=== PATIENT | female | born 1970 | race Caucasian/White ===

== ENCOUNTER 2022-06-26 09:24 | Emergency (ER) | payer BC, SELFPAY ==
--- NOTE | 2022-06-26 09:15 | RT.EKG_ITS ---
APPROVED REPORT Exam: Resting ECG Reason for Exam: chest pain Patient Location: E HR:74 bpm ECG Measurements Heart Rate 74 AXIS KS 119 P 51 QRSd 95 QRS 33 QT 375 T 36 QTc 417 Conclusion Sinus rhythm...normal P axis, V-rate 60- 99
[2022-06-26 09:27] VITALS: BP 126/81; PULSE 82; RESP 16; TEMP 36.6; O2SAT 97
--- NOTE | 2022-06-26 09:31 | W.ED.GENAD ---
Discharge Plan Disposition Patient Disposition: Home Condition: Improving Discharge Details Clinical Impression: Syncope and collapse, Vaso-vagal reaction Primary Care Provider: Joann Sin ED Provider: Khoa Babcock Meds and New Rx's Prescriptions: Continued atorvastatin 80 mg Tablet 80 mg PO DAILY prednisone 20 mg Tablet 40 mg PO DAILY montelukast 4 mg Tablet,Chewable 10 mg PO DAILY mycophenolate mofetil [CellCept] 500 mg Tablet 1,500 mg PO BID metformin 1,000 mg Tablet 1,000 mg PO DAILY lisinopril 10 mg Tablet 10 mg PO DAILY albuterol 90 mcg/actuation Aerosol 90 mcg INHALATION PRN PRN hydroxychloroquine [Plaquenil] 200 mg Tablet 200 mg PO DAILY budesonide-formoterol [Symbicort] 80-4.5 mcg/actuation Hfa Aerosol Inhaler 2 puff INHALATION BID venlafaxine 225 mg Tablet Extended Release 24hr 225 mg PO QAM Discharge Instructions Instructions: Syncope (ED) Discharge Data Discharge Physician: Khoa Babcock Medical Decision Making Summary: I analyzed the data imaging and labs on this patient who came to the emergency department after she had a syncopal episode where she having an IV placed in her left antecubital fossa. Most like the patient had a vasovagal syncopal episode. Patient had a CT of the head chest x-ray EKG all within normal limits as interpreted by me and the radiologist. 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 She was given IV fluids and her course was uneventful and actually improved. At this time patient will be discharged home. Shared decision making: The patient understands and advised her that when she gets an IV they should stimulate the pain prior to inserting the IV so that we will prevent a vasovagal reaction from the vein. She will follow-up with her primary care physician Differential Diagnosis Differential Diagnosis: 1. Vasovagal syncope 2. Orthostatic syncope 3. Cardiac arrhythmia 4. SA Medical Records Medical records reviewed: Yes I reviewed the patient's medical records. Imaging Data Radiologic Study: Attestation: I personally reviewed and interpreted this imaging study as follows: Imaging: CT Scan My impression: Normal head CT as read by me and read by the radiologist Radiologist's impression: Launch?Image Patient Name: Agustina Page Unit #: [id number] Loc: ER ? Ordering Provider:? Khoa Babcock M.D. Status: REG ER ? Primary Care Provider: Joann Sin NP Date of Exam: 06/26/22 Sex: F ? : 1970 Age: 52 ? Exam(s) a CT:CT head wo Exam(s) CT HEAD WO EXAM: ? CT HEAD WO CLINICAL HISTORY: ? syncope. ? TECHNIQUE:? Imaging Protocol: Axial computed tomography images with coronal and sagittal reformatted images were created and reviewed COMPARISON:? No exams were available for comparison FINDINGS: Ventricles and Extra axial spaces: Normal in size and morphology for the patient's age. Hemorrhage: None. Cerebral parenchyma: No evidence of an acute territorial infarct.? Midline shift: None. Brainstem/Cerebellum: Normal. Calvarium: Normal. Visualized Paranasal sinuses/Mastoids: Clear. Soft Tissues: Unremarkable. IMPRESSION: 1. No acute intracranial process.? 2. Findings were discussed with Dr. Pollock at 10:46 a.m. on 06/26/2022. RADIATION DOSE DELIVERED:? 798.05mGy.cm Total DLP DATA REPOSITORY:? All CT scans at this facility are submitted to the National Radiology Data Registry (NRDR) Dose Index Registry (DIR) with the [employer] (ACR). RADIATION OPTIMIZATION:? All CT scans at this facility use at least one of these dose optimization techniques: automated exposure control; mA and/or kV adjustment per patient size (includes targeted exams where dose is matched to clinical indication); or iterative reconstruction. 2532-3031: Total DLP =? ? 0.00 mGy-cm Ordered By:? Khoa Babcock M.D. CC: ? Radiologic Study #2: Attestation: I personally reviewed and interpreted this imaging study as follows: Imaging: X-Ray My impression: Normal chest x-ray no abnormality Radiologist's impression: ? ED Visit Note Preview Review?and?Refine ? Ready for Discharge ? Typicals Recall ? Save Sign Principal Khoa Babcock MD Contributors Last Saved at 06/26/22 12:03 HPI ROS PFSH PAWSS Exam Course PROC MDM CC Time Sign Out Discharge Plan F2F POCUS Exam (ED) Medical Decision Making Add?Content ? Radiologic Studies ? HPI ? Review of Systems ? PFSH ? PAWSS ? Exam ? Course ? Procedures ? ? MDM Narrative ? ? Medical decision making narrative ? ? Differential Diagnosis ? Medical Records ? ? Medical records reviewed ? I reviewed the patient's medical records. ? Medical records narrative ? ? Imaging Data Add ? Radiologic Study ? Lab Data ? ? Lab results reviewed Yes <del>No</del> ? I reviewed the patient's lab results. ? Lab results narrative ? ? ? Labs ? ? ECG Data ? ? Attestation ? I personally reviewed and interpreted this ECG (s) as follows: ? Prior ECG tracings ? available for review not available for review ? Interpretation ? Please include at least 3 of the following 6 elements in your interpretation: Hensley? Rhythm? Rate? CO intervals? ST-T wave changes? Comparison to a prior ECG (if reviewed) ? Normal sinus rhythm heart rate 74 normal CO interval normal axis no acute ST- T change Core Measures ? ? AMI Core Measures Followed ? Yes No ? Measure exclusions ? not indicated contraindicated Critical Care Time ? Sign Out ? Discharge ? Restraint Face to Face ? POCUS Exam (ED) ? ? Agustina Page ED 52, F?1970 MRN#? [id number] REG ER,?Main ER??P1?-P1? 1.57m 64.41kg BMI: 26.0kg/m? [id number] Acc#? [id number] Resus Status Not Ordered No Hx Avail Allergies Sulfa (Sulfonamide Antibiotics) Other (See Comment) Problems No Data to Display Home Meds Confirmed MEDICATIONS (INSTRUCTIONS) LAST TAKEN Active albuterol 90 mcginhalationPRNPRN *Product no longer available atorvastatin 80 mgPODAILY budesonide-formoterol [Symbicort] 2 puffinhalationBID hydroxychloroquine [Plaquenil] 200 mgPODAILY lisinopril 10 mgPODAILY metformin [Glucophage] 1,000 mgPODAILY montelukast 10 mgPODAILY mycophenolate mofetil [CellCept] 1,500 mgPOBID prednisone 40 mgPODAILY venlafaxine 225 mgPOQAM Special Indicators No Data to Display Vitals - Initial & Most Recent INITIAL Today 09:27 CURRENT Today 09:46 BP 126/81 *126/81 Pulse 82 *82 Resp 16 16 Temp 36.6 C *36.6 C O2 Sat 97 *97 O2 Delivery *from earlier documentation Triage Note pt arrives via EMS from [facility], pt does not have cancer but was 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 pt has medical anxiety, took 0.25mg clonazapam this AM, fainted during IV placment. 300ml of NS given. PFSH MEDICAL HISTORY ONSET No Active Medical Hx to Display SURGICAL HISTORY ONSET No Active Surgical Hx to Display FAMILY HISTORY SOCIAL HISTORY Documents Most Recent Departmental Emergency Room Visit Notes Today EKG Interpretation Report Today Imaging Chest X-Ray Today Head CT Today Lab Results Last 24 Hrs Most Recent Hematology WBC (4.4-10.8) 14.05 10^3/uL H Today 10:04 RBC (3.93-5.22) 3.07 10^6/uL L Today 10:04 Hgb (11.2-15.7) 9.5 g/dL L Today 10:04 Hct (36.0-46.0) 30.7 % L Today 10:04 MCV (80-95) 100 fL H Today 10:04 MCH (27.0-33.0) 30.9 pg Today 10:04 MCHC (32.0-36.0) 30.9 % L Today 10:04 RDW (11.7-14.6) 16.7 % H Today 10:04 Plt Count (130-400) 237 10^3/uL Today 10:04 MPV (8.0-11.0) 8.9 fL Today 10:04 Immature Gran % 0.4 Today 10:04 Neutrophils % 86.1 Today 10:04 Lymphocytes % 9.0 Today 10:04 Monocytes % 4.1 Today 10:04 Eosinophils % 0.1 Today 10:04 Basophils % 0.3 Today 10:04 Nucleated RBC % (0.0-0.3) 0.0 % Today 10:04 Absolute Neutrophils (1.2-6.7) 12.10 10^3/uL H Today 10:04 Absolute Lymphocytes (1.2-3.4) 1.26 10^3/uL Today 10:04 Absolute Monocytes (0.1-0.8) 0.58 10^3/uL Today 10:04 Absolute Eosinophils (0.0-0.7) 0.01 10^3/uL Today 10:04 Absolute Basophils (0.0-0.2) 0.04 10^3/uL Today 10:04 Chemistry Sodium (136-145) 140 mmol/L Today 10:45 Potassium (3.5-5.1) 3.5 mmol/L Today 10:45 Chloride (98-107) 105 mmol/L Today 10:45 Carbon Dioxide (21.0-32.0) 27.1 mmol/L Today 10:45 Anion Gap (3-11) 7.9 mmol/L Today 10:45 BUN (7-18) 21 mg/dL H Today 10:45 Creatinine (0.55-1.02) 0.8 mg/dL Today 10:45 Est GFR (CKD-EPI 2020) (mL/min/1.73m2) 89.15? Today 10:45 Glucose (74-106) 158 mg/dL H Today 10:45 Calcium (8.5-10.1) 8.8 mg/dL Today 10:45 Magnesium (1.8-2.4) 1.9 mg/dL Today 10:45 Total Bilirubin (0.2-1.0) 0.4 mg/dL Today 10:45 AST (15-37) 11 U/L L Today 10:45 ALT (14-59) 22 U/L Today 10:45 Alkaline Phosphatase (46-116) 29 U/L L Today 10:45 Troponin I (<or=60) < 50 ng/L Today 10:45 Total Protein (6.4-8.2) 5.8 g/dL L Today 10:45 Albumin (3.4-5.0) 3.5 g/dL Today 10:45 PFSH-Nursing Medical History Other Medical History 1 Other Medical History 2 Other Medical History 3 Other Medical History 4 Other Medical History 5 Surgical History Other Surgical History 1 Other Surgical History 2 Other Surgical History 3 Family History Other Pertinent Family History Secondary Triage Note Objective Subjective Triage Data Stated Complaint BERNA Chief Complaint [id number] Condition Arrival Date/Time 06/26/22 09:24 Arrival Mode AMBULANCE BERNA Triaged At 06/26/22 09:27 ED Location Main ER Area/Station P1 P1 Lab Results Last Value Most Recent Hematology WBC (4.4-10.8) 14.05 10^3/uL H Today RBC (3.93-5.22) 3.07 10^6/uL L Today Hgb (11.2-15.7) 9.5 g/dL L Today Hct (36.0-46.0) 30.7 % L Today MCV (80-95) 100 fL H Today MCH (27.0-33.0) 30.9 pg Today MCHC (32.0-36.0) 30.9 % L Today RDW (11.7-14.6) 16.7 % H Today Plt Count (130-400) 237 10^3/uL Today MPV (8.0-11.0) 8.9 fL Today Immature Gran % 0.4 Today Neutrophils % 86.1 Today Lymphocytes % 9.0 Today Monocytes % 4.1 Today Eosinophils % 0.1 Today Basophils % 0.3 Today Nucleated RBC % (0.0-0.3) 0.0 % Today Absolute Neutrophils (1.2-6.7) 12.10 10^3/uL H Today Absolute Lymphocytes (1.2-3.4) 1.26 10^3/uL Today Absolute Monocytes (0.1-0.8) 0.58 10^3/uL Today Absolute Eosinophils (0.0-0.7) 0.01 10^3/uL Today Absolute Basophils (0.0-0.2) 0.04 10^3/uL Today Chemistry Sodium (136-145) 140 mmol/L Today Potassium (3.5-5.1) 3.5 mmol/L Today Chloride (98-107) 105 mmol/L Today Carbon Dioxide (21.0-32.0) 27.1 mmol/L Today Anion Gap (3-11) 7.9 mmol/L Today BUN (7-18) 21 mg/dL H Today Creatinine (0.55-1.02) 0.8 mg/dL Today Est GFR (CKD-EPI 2020) (mL/min/1.73m2) 89.15? Today Glucose (74-106) 158 mg/dL H Today Calcium (8.5-10.1) 8.8 mg/dL Today Magnesium (1.8-2.4) 1.9 mg/dL Today Total Bilirubin (0.2-1.0) 0.4 mg/dL Today AST (15-37) 11 U/L L Today ALT (14-59) 22 U/L Today Alkaline Phosphatase (46-116) 29 U/L L Today Troponin I (<or=60) < 50 ng/L Today Total Protein (6.4-8.2) 5.8 g/dL L Today Albumin (3.4-5.0) 3.5 g/dL Today Documents Agustina Page??52??F??1970 ? Allergy/Adv: Sulfa (Sulfonamide Antibiotics) (More??) Close Emergency Room Visit Notes (Draft) Khoa Babcock - 06/26/22 09:31 EKG Interpretation Report 06/26/22 09:15 Chest X-Ray (Signed) Jordan Duncan - 06/26/22 09:[address] (Signed) Jordan Duncan - 06/26/22 09:45 Launch?Image Patient Name: Agustina Page Unit #: [id number] Loc: ER ? Ordering Provider:? Khoa Babcock M.D. Status: REG ER ? Primary Care Provider: Joann Sin NP Date of Exam: 06/26/22 Sex: F ? Admission Date: 06/26/22? : 1970 ? Age: 52 ? Exam(s) XR CHEST 1V IN DI DEPT EXAM:? XR CHEST 1V IN DI DEPT CLINICAL HISTORY:? syncope TECHNIQUE:? 2D digital imaging was performed of the chest. One image was obtained.? An AP view was obtained. COMPARISON:? No exams were available for comparison FINDINGS: MEDIASTINUM: Normal.? HEART: Normal. PULMONARY VASCULATURE: Normal. LUNGS: Clear.? PLEURAL SPACE: No pleural effusion or pneumothorax. BONE:Within normal limits for the patient's age. There is a mild right convex curvature of the thoracic spine. OTHER FINDINGS:Normal.? IMPRESSION: No acute pulmonary findings. DATA REPOSITORY:? RADIATION DOSE DELIVERED:? Ordered By:? Khoa Babcock M.D. CC: ? ? ED Visit Note Preview Review?and?Refine ? Ready for Discharge ? Typicals Recall ? Save Sign Principal Khoa Babcock MD Contributors Last Saved at 06/26/22 12:03 HPI ROS PFSH PAWSS Exam Course PROC [facility] CC Time Sign Out Discharge Plan F2F POCUS Exam (ED) Medical Decision Making Add?Content ? Radiologic Studies ? HPI ? Review of Systems ? PFSH ? PAWSS ? Exam ? Course ? Procedures ? ? [facility] Narrative ? ? Medical decision making narrative ? ? Differential Diagnosis ? Medical Records ? ? Medical records reviewed ? I reviewed the patient's medical records. ? Medical records narrative ? ? Imaging Data Add ? Radiologic Study ? Lab Data ? ? Lab results reviewed Yes <del>No</del> ? I reviewed the patient's lab results. ? Lab results narrative ? ? ? Labs ? ? ECG Data ? ? Attestation ? I personally reviewed and interpreted this ECG (s) as follows: ? Prior ECG tracings ? available for review not available for review ? Interpretation ? Please include at least 3 of the following 6 elements in your interpretation: Hensley? Rhythm? Rate? CO intervals? ST-T wave changes? Comparison to a prior ECG (if reviewed) ? Normal sinus rhythm heart rate 74 normal CO interval normal axis no acute ST- T change Core Measures ? ? AMI Core Measures Followed ? Yes No ? Measure exclusions ? not indicated contraindicated Critical Care Time ? Sign Out ? Discharge ? Restraint Face to Face ? POCUS Exam (ED) ? ? Agustina Page ED 52, F?1970 MRN#? [id number] REG ER,?Main ER??P1?-P1? 1.57m 64.41kg BMI: 26.0kg/m? [id number] Acc#? [id number] Resus Status Not Ordered No Hx Avail Allergies Sulfa (Sulfonamide Antibiotics) Other (See Comment) Problems No Data to Display Home Meds Confirmed MEDICATIONS (INSTRUCTIONS) LAST TAKEN Active albuterol 90 mcginhalationPRNPRN *Product no longer available atorvastatin 80 mgPODAILY budesonide-formoterol [Symbicort] 2 puffinhalationBID hydroxychloroquine [Plaquenil] 200 mgPODAILY lisinopril 10 mgPODAILY metformin [Glucophage] 1,000 mgPODAILY montelukast 10 mgPODAILY mycophenolate mofetil [CellCept] 1,500 mgPOBID prednisone 40 mgPODAILY venlafaxine 225 mgPOQAM Special Indicators No Data to Display Vitals - Initial & Most Recent INITIAL Today 09:27 CURRENT Today 09:46 BP 126/81 *126/81 Pulse 82 *82 Resp 16 16 Temp 36.6 C *36.6 C O2 Sat 97 *97 O2 Delivery *from earlier documentation Triage Note pt arrives via EMS from [facility], pt does not have cancer but was 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 pt has medical anxiety, took 0.25mg clonazapam this AM, fainted during IV placment. 300ml of NS given. PFSH MEDICAL HISTORY ONSET No Active Medical Hx to Display SURGICAL HISTORY ONSET No Active Surgical Hx to Display FAMILY HISTORY SOCIAL HISTORY Documents Most Recent Departmental Emergency Room Visit Notes Today EKG Interpretation Report Today Imaging Chest X-Ray Today Head CT Today Lab Results Last 24 Hrs Most Recent Hematology WBC (4.4-10.8) 14.05 10^3/uL H Today 10:04 RBC (3.93-5.22) 3.07 10^6/uL L Today 10:04 Hgb (11.2-15.7) 9.5 g/dL L Today 10:04 Hct (36.0-46.0) 30.7 % L Today 10:04 MCV (80-95) 100 fL H Today 10:04 MCH (27.0-33.0) 30.9 pg Today 10:04 MCHC (32.0-36.0) 30.9 % L Today 10:04 RDW (11.7-14.6) 16.7 % H Today 10:04 Plt Count (130-400) 237 10^3/uL Today 10:04 MPV (8.0-11.0) 8.9 fL Today 10:04 Immature Gran % 0.4 Today 10:04 Neutrophils % 86.1 Today 10:04 Lymphocytes % 9.0 Today 10:04 Monocytes % 4.1 Today 10:04 Eosinophils % 0.1 Today 10:04 Basophils % 0.3 Today 10:04 Nucleated RBC % (0.0-0.3) 0.0 % Today 10:04 Absolute Neutrophils (1.2-6.7) 12.10 10^3/uL H Today 10:04 Absolute Lymphocytes (1.2-3.4) 1.26 10^3/uL Today 10:04 Absolute Monocytes (0.1-0.8) 0.58 10^3/uL Today 10:04 Absolute Eosinophils (0.0-0.7) 0.01 10^3/uL Today 10:04 Absolute Basophils (0.0-0.2) 0.04 10^3/uL Today 10:04 Chemistry Sodium (136-145) 140 mmol/L Today 10:45 Potassium (3.5-5.1) 3.5 mmol/L Today 10:45 Chloride (98-107) 105 mmol/L Today 10:45 Carbon Dioxide (21.0-32.0) 27.1 mmol/L Today 10:45 Anion Gap (3-11) 7.9 mmol/L Today 10:45 BUN (7-18) 21 mg/dL H Today 10:45 Creatinine (0.55-1.02) 0.8 mg/dL Today 10:45 Est GFR (CKD-EPI 2020) (mL/min/1.73m2) 89.15? Today 10:45 Glucose (74-106) 158 mg/dL H Today 10:45 Calcium (8.5-10.1) 8.8 mg/dL Today 10:45 Magnesium (1.8-2.4) 1.9 mg/dL Today 10:45 Total Bilirubin (0.2-1.0) 0.4 mg/dL Today 10:45 AST (15-37) 11 U/L L Today 10:45 ALT (14-59) 22 U/L Today 10:45 Alkaline Phosphatase (46-116) 29 U/L L Today 10:45 Troponin I (<or=60) < 50 ng/L Today 10:45 Total Protein (6.4-8.2) 5.8 g/dL L Today 10:45 Albumin (3.4-5.0) 3.5 g/dL Today 10:45 PFS-Nursing Medical History Other Medical History 1 Other Medical History 2 Other Medical History 3 Other Medical History 4 Other Medical History 5 Surgical History Other Surgical History 1 Other Surgical History 2 Other Surgical History 3 Family History Other Pertinent Family History Secondary Triage Note Objective Subjective Triage Data Stated Complaint CALEX Chief Complaint [id number] Condition Arrival Date/Time 06/26/22 09:24 Arrival Mode AMBULANCE BERNA Triaged At 06/26/22 09:27 ED Location Main ER Area/Station P1 P1 Lab Results Last Value Most Recent Hematology WBC (4.4-10.8) 14.05 10^3/uL H Today RBC (3.93-5.22) 3.07 10^6/uL L Today Hgb (11.2-15.7) 9.5 g/dL L Today Hct (36.0-46.0) 30.7 % L Today MCV (80-95) 100 fL H Today MCH (27.0-33.0) 30.9 pg Today MCHC (32.0-36.0) 30.9 % L Today RDW (11.7-14.6) 16.7 % H Today Plt Count (130-400) 237 10^3/uL Today MPV (8.0-11.0) 8.9 fL Today Immature Gran % 0.4 Today Neutrophils % 86.1 Today Lymphocytes % 9.0 Today Monocytes % 4.1 Today Eosinophils % 0.1 Today Basophils % 0.3 Today Nucleated RBC % (0.0-0.3) 0.0 % Today Absolute Neutrophils (1.2-6.7) 12.10 10^3/uL H Today Absolute Lymphocytes (1.2-3.4) 1.26 10^3/uL Today Absolute Monocytes (0.1-0.8) 0.58 10^3/uL Today Absolute Eosinophils (0.0-0.7) 0.01 10^3/uL Today Absolute Basophils (0.0-0.2) 0.04 10^3/uL Today Chemistry Sodium (136-145) 140 mmol/L Today Potassium (3.5-5.1) 3.5 mmol/L Today Chloride (98-107) 105 mmol/L Today Carbon Dioxide (21.0-32.0) 27.1 mmol/L Today Anion Gap (3-11) 7.9 mmol/L Today BUN (7-18) 21 mg/dL H Today Creatinine (0.55-1.02) 0.8 mg/dL Today Est GFR (CKD-EPI 2020) (mL/min/1.73m2) 89.15? Today Glucose (74-106) 158 mg/dL H Today Calcium (8.5-10.1) 8.8 mg/dL Today Magnesium (1.8-2.4) 1.9 mg/dL Today Total Bilirubin (0.2-1.0) 0.4 mg/dL Today AST (15-37) 11 U/L L Today ALT (14-59) 22 U/L Today Alkaline Phosphatase (46-116) 29 U/L L Today Troponin I (<or=60) < 50 ng/L Today Total Protein (6.4-8.2) 5.8 g/dL L Today Albumin (3.4-5.0) 3.5 g/dL Today Documents Agustina Page??52??F??1970 ? Allergy/Adv: Sulfa (Sulfonamide Antibiotics) (More??) Close Emergency Room Visit Notes (Draft) Khoa Babcock - 06/26/22 09:31 EKG Interpretation Report 06/26/22 09:15 Chest X-Ray (Signed) Jordan Duncan - 06/26/22 09:[address] (Signed) Jordan Duncan - 06/26/22 09:45 Launch?Image Patient Name: Agustina Page Unit #: [id number] Loc: ER ? Ordering Provider:? Khoa Babcock M.D. Status: REG ER ? Primary Care Provider: Joann Sin NP Date of Exam: 06/26/22 Sex: F ? Admission Date: 06/26/22? : 1970 ? Age: 52 ? Exam(s) XR CHEST 1V IN DI DEPT EXAM:? XR CHEST 1V IN DI DEPT CLINICAL HISTORY:? syncope TECHNIQUE:? 2D digital imaging was performed of the chest. One image was obtained.? An AP view was obtained. COMPARISON:? No exams were available for comparison FINDINGS: MEDIASTINUM: Normal.? HEART: Normal. PULMONARY VASCULATURE: Normal. LUNGS: Clear.? PLEURAL SPACE: No pleural effusion or pneumothorax. BONE:Within normal limits for the patient's age. There is a mild right convex curvature of the thoracic spine. OTHER FINDINGS:Normal.? IMPRESSION: No acute pulmonary findings. DATA REPOSITORY:? RADIATION DOSE DELIVERED:? Ordered By:? Khoa Babcock M.D. CC: ? Lab Data Lab results reviewed: Yes I reviewed the patient's lab results. Lab results narrative: Labs reviewed by me show no abnormality except for mild elevation of the white blood cell count but the patient is on prednisone. Troponin and electrolytes are negative within normal limits Labs: / [facility] PAGE 1 RUN TIME: [id number] RUN USER: [place] [address] Barbara Juan MD PATIENT REPORT PATIENT: Agustina Page LOC: ER U #: [id number] /SX: 1970 F ROOM: RE06/26/[address]: Khoa Babcock M.D. STATUS: REG ER BED: DIS: SPEC #: [id number] KEVIN: 06/26/22 STATUS: COMP REQ #: [id number] RECD: 06/26/22 [facility] DR: Khoa Babcock M.D. ENTERED: 06/26/22 [facility] DR: Joann Sin ENERGY TRADER FAX #: ORDERED: CBC/Diff Test Result Flag Reference Verified WBC 14.05 H 4.4-10.8 10^3/uL 06/26/22-1010 RBC 3.07 L 3.93-5.22 10^6/uL 04/25/23-1009 HGB 9.5 L 11.2-15.7 g/dL 06/26/22 HCT 30.7 L 36.0-46.0 % 06/26/22 MCV 100 H 80-95 fL 06/26/22 MCH 30.9 27.0-33.0 pg 06/26/22 MCHC 30.9 L 32.0-36.0 % 06/26/22 RDW 16.7 H 11.7-14.6 % 06/26/22 Platelet Count 237 130-400 10^3/uL 06/26/22 MPV 8.9 8.0-11.0 fL 06/26/22 Neutrophils % 86.1 06/26/22 Lymphocytes % 9.0 06/26/22 Monocytes % 4.1 06/26/22 Eosinophils % 0.1 06/26/22 Basophils % 0.3 06/26/22 Immature Grans % 0.4 06/26/22 Nucleated RBC 0.0 0.0-0.3 % 06/26/22 Absolute Neutrophil Count 12.10 H 1.2-6.7 10^3/uL 06/26/22 Absolute Lymphocyte Count 1.26 1.2-3.4 10^3/uL 06/26/22 Absolute Monocyte Count 0.58 0.1-0.8 10^3/uL 06/26/22 Absolute Eosinophil Count 0.01 0.0-0.7 10^3/uL 06/26/22 Absolute Basophil Count 0.04 0.0-0.2 10^3/uL 06/26/22 Patient: Agustina Page LABORATORY Acct#[id number] Unit#[id number] RUN DATE: 06/26/22 [facility] PAGE 1 RUN TIME: [id number] RUN USER: [place] [address] Barbara Juan MD PATIENT REPORT PATIENT: Agustina Page LOC: ER U #: [id number] /SX: 1970 F ROOM: RE06/26/[address]: Khoa Babcock M.D. STATUS: REG ER BED: DIS: SPEC #: [id number] KEVIN: 06/26/22 STATUS: COMP REQ #: [id number] RECD: 06/26/[address]: Khoa Babcock M.D. ENTERED: 06/26/22 [facility] DR: Joann Sin ENERGY TRADER FAX #: ORDERED: CMP, MG, Troponin I Test Result Flag Reference Verified Calcium 8.8 8.5-10.1 mg/dL 06/26/22 Glucose 158 H 74-106 mg/dL 06/26/22 BUN 21 H 7-18 mg/dL 06/26/22 Creatinine 0.8 0.55-1.02 mg/dL 06/26/22 Estimated GFR 89.15 mL/min/1.73m2 06/26/22 The eGFR is calculated from a serum creatinine using the CKD-EPI 2020 equation. Other variables required for the equation are gender and age; this equation does not include a race coefficient. This equation has similar overall performance to previous equations except values may differ, in particular, in patients with higher values of eGFR and younger-aged adults. Total Protein 5.8 L 6.4-8.2 g/dL 06/26/22 Albumin 3.5 3.4-5.0 g/dL 06/26/22 Bilirubin, Total 0.4 0.2-1.0 mg/dL 06/26/22 Alk Phos 29 L 46-116 U/L 06/26/22 Sodium 140 136-145 mmol/L 06/26/22 Potassium 3.5 3.5-5.1 mmol/L 06/26/22 Chloride 105 98-107 mmol/L 06/26/22 CO2 27.1 21.0-32.0 mmol/L 06/26/22 Anion Gap 7.9 3-11 mmol/L 06/26/22 AST 11 L 15-37 U/L 06/26/22 ALT 22 14-59 U/L 06/26/22 Magnesium 1.9 1.8-2.4 mg/dL 06/26/22 Cardiac Troponin I < 50 <or=60 ng/L 06/26/22 Patient: Agustina Page LABORATORY Acct#[id number] Unit#[id number] ECG Data Attestation: I personally reviewed and interpreted this ECG (s) as follows: Prior ECG tracings: available for review Interpretation: Normal sinus rhythm heart rate 74 normal CO interval normal axis no acute ST-T change HPI General Date/Time Provider Initiated Documentation: 06/26/22 09:29. HPI Narrative: Patient who presents to the emergency department after she had a syncopal episodes at the lab where she was supposed to get an IV infusion of IgG therapy for dermatomyositis. Patient states they were putting the IV in her left antecubital fossa of her arm and passed out denies any head trauma denies any seizure activity denies any bladder or bowel incontinence states that she was out for a few minutes and then woke up. States that she has had episodes of syncope when they have drawn blood and put IVs in the past. Denies any chest pain does not he denies any palpitations denies any shortness of breath Related Data Home Medications Medication Instructions Recorded Confirmed albuterol 90 mcg/actuation aerosol 90 mcg inhalation PRN PRN 06/26/22 06/26/22 inhaler atorvastatin 80 mg tablet 80 mg PO DAILY 06/26/22 06/26/22 budesonide-formoterol HFA 80 2 puff inhalation BID 06/26/22 06/26/22 mcg-4.5 mcg/actuation aerosol inhaler (Symbicort) hydroxychloroquine 200 mg tablet 200 mg PO DAILY 06/26/22 06/26/22 (Plaquenil) lisinopril 10 mg tablet 10 mg PO DAILY 06/26/22 06/26/22 metformin 1,000 mg tablet 1,000 mg PO DAILY 06/26/22 06/26/22 montelukast 4 mg chewable tablet 10 mg PO DAILY 06/26/22 06/26/22 mycophenolate mofetil 500 mg 1,500 mg PO BID 06/26/22 06/26/22 tablet (CellCept) prednisone 20 mg tablet 40 mg PO DAILY 06/26/22 06/26/22 venlafaxine 225 mg tablet,extended 225 mg PO QAM 06/26/22 06/26/22 release 24 hr Allergies Allergy/AdvReac Type Severity Reaction Status Date / Time Sulfa (Sulfonamide AdvReac Other (See Unverified 06/26/22 10:00 Antibiotics) Comment) General Stated Complaint: [id number] IRENA: 3 Review of Systems Constitutional Constitutional: Reports as per HPI and Reports system reviewed and no additional complaints, except as documented Eyes Eyes: Reports as per HPI and Reports system reviewed and no additional complaints, except as documented ENT Ears, Nose, Mouth, and Throat: Reports system reviewed and no additional complaints, except as documented and Reports as per HPI Cardiovascular Cardiovascular: Reports as per HPI and Reports system reviewed and no additional complaints, except as documented Respiratory Respiratory: Reports as per HPI and Reports system reviewed and no additional complaints, except as documented Gastrointestinal Gastrointestinal: Reports as per HPI and Reports system reviewed and no additional complaints, except as documented Musculoskeletal Musculoskeletal: Reports system reviewed and no additional complaints, except as documented Neurologic Neurologic: Reports system reviewed and no additional complaints, except as documented Psychiatric Psychiatric: Reports anxiety Endocrine Endocrine: Reports system reviewed and no additional complaints, except as documented Hematologic/Lymphatic Hematologic/Lymphatic: Reports system reviewed and no additional complaints, except as documented Allergic/Immunologic Allergic/Immunologic: Reports system reviewed and no additional complaints, except as documented PFSH All Active Problems (Updated 06/26/22 @ 12:24 by Khoa Babcock MD) Syncope and collapse (Acute) Vaso-vagal reaction (Acute) Social History Smoking/Tobacco Use Status: Never Smoking risk assessment performed?: Yes Alcohol Intake: never Drug use: Never Substance use type: does not use Do you feel safe at home: Yes Do you feel safe in your relationship?: Yes Additional Social history: at bedside. Exam Const General: cooperative, healthy appearing, comfortable, no acute distress and well developed HENWI Head: normal to inspection, no palpable skull fracture, normocephalic and atraumatic Eyes General: appearance normal, both eyes and all related structures Periorbital: periorbital findings normal Pupils: PERRL EOM: EOM intact bilaterally Neck Neck: normal visual inspection, full ROM and no lymphadenopathy Chest Chest: normal inspection of the chest and normal palpation of entire chest wall Resp Effort & Inspection: normal respiratory effort Auscultation: clear to auscultation bilaterally Percussion: percussion normal Cardio Jugular venous pressure: no JVD Palpation: normal PMI Rate: regular rate Rhythm: regular rhythm Heart Sounds: S1 normal and S2 normal GI Inspection: normal to inspection Back/Spine/Pelvis Back: no CVA tenderness Thoracic/Lumbar Spine: thoracic and lumbar spine normal to inspection Skin General skin exam: no rashes or lesions noted Neuro General: patient alert, no meningeal signs and absent sensation to monofilament Cranial Nerves: CN's II-XI intact bilaterally Extrem General: normal to inspection and full ROM Course Vital Signs Vital signs: Vital Signs Temperature 36.6 C 06/26/22 09:27 Pulse 82 06/26/22 09:27 Respiratory Rate 16 06/26/22 09:27 Blood Pressure 126/81 06/26/22 09:27 Pulse Oximetry 97 06/26/22 09:27 Temperature 36.6 C 06/26/22 09:27 Temperature Source Temporal Artery Scan 06/26/22 09:27 Pulse 82 06/26/22 09:27 Respiratory Rate 16 06/26/22 09:27 Blood Pressure 126/81 06/26/22 09:27 Pulse Oximetry 97 06/26/22 09:27 Oxygen Delivery Method Room Air 06/26/22 09:27 Oxygen Flow Rate 0 06/26/22 09:27 Pain Level 0 06/26/22 09:27
--- NOTE | 2022-06-26 09:45 | DI.CT_ITS ---
Exam(s) CT HEAD WO EXAM: CT HEAD WO CLINICAL HISTORY: syncope. TECHNIQUE: Imaging Protocol: Axial computed tomography images with coronal and sagittal reformatted images were created and reviewed COMPARISON: No exams were available for comparison FINDINGS: Ventricles and Extra axial spaces: Normal in size and morphology for the patient's age. Hemorrhage: None. Cerebral parenchyma: No evidence of an acute territorial infarct. Midline shift: None. Brainstem/Cerebellum: Normal. Calvarium: Normal. Visualized Paranasal sinuses/Mastoids: Clear. Soft Tissues: Unremarkable. IMPRESSION: 1. No acute intracranial process. 2. Findings were discussed with Dr. Pollock at 10:46 a.m. on 06/26/2022. RADIATION DOSE DELIVERED: 798.05mGy.cm Total DLP DATA REPOSITORY: All CT scans at this facility are submitted to the National Radiology Data Registry (NRDR) Dose Index Registry (DIR) with the [employer] ([employer]). RADIATION OPTIMIZATION: All CT scans at this facility use at least one of these dose optimization te chniques: automated exposure control; mA and/or kV adjustment per patient size (includes targeted exa ms where dose is matched to clinical indication); or iterative reconstruction.
[2022-06-26 09:46] VITALS: RESP 16
--- NOTE | 2022-06-26 09:46 | DI.RAD_ITS ---
Exam(s) XR CHEST 1V IN DI DEPT EXAM: XR CHEST 1V IN DI DEPT CLINICAL HISTORY: syncope TECHNIQUE: 2D digital imaging was performed of the chest. One image was obtained. An AP view was ob tained. COMPARISON: No exams were available for comparison FINDINGS: MEDIASTINUM: Normal. HEART: Normal. PULMONARY VASCULATURE: Normal. LUNGS: Clear. PLEURAL SPACE: No pleural effusion or pneumothorax. BONE:Within normal limits for the patient's age. There is a mild right convex curvature of the thorac ic spine. OTHER FINDINGS:Normal. IMPRESSION: No acute pulmonary findings. DATA REPOSITORY: RADIATION DOSE DELIVERED:
[2022-06-26] MEDS: Normal Saline 1,000 ML 1000 ML IV (09:58)
[2022-06-26] MEDS: LORazepam 1 MG TAB PO (09:58)
[2022-06-26 10:09] LABS: Abs Immature Grans 0.06 10^3/uL (0.0-0.06); Absolute Basophil Count 0.04 10^3/uL (0.0-0.2); Absolute Eosinophil Count 0.01 10^3/uL (0.0-0.7); Basophils % 0.3; Eosinophils % 0.1; HCT 30.7 % (36.0-46.0); HGB 9.5 g/dL (11.2-15.7); Immature Grans % 0.4; MCH 30.9 pg (27.0-33.0); MCHC 30.9 % (32.0-36.0); MCV 100 fL (80-95); MPV 8.9 fL (8.0-11.0); Monocytes % 4.1; Neutrophils % 86.1; Platelet Count 237 10^3/uL (130-400); RBC 3.07 10^6/uL (3.93-5.22); RDW 16.7 % (11.7-14.6); RDW-SD 61.3 fL; WBC 14.05 10^3/uL (4.4-10.8)
[2022-06-26 10:10] LABS: Absolute Lymphocyte Count 1.26 10^3/uL (1.2-3.4); Absolute Monocyte Count 0.58 10^3/uL (0.1-0.8)
[2022-06-26 11:11] LABS: ALT 22 U/L (14-59); AST 11 U/L (15-37); Albumin 3.5 g/dL (3.4-5.0); Alkaline Phosphatase 29 U/L (46-116); Anion Gap 7.9 mmol/L (3-11); BUN 21 mg/dL (7-18); Bilirubin, Total 0.4 mg/dL (0.2-1.0); CO2 27.1 mmol/L (21.0-32.0); CREATININE 0.8 mg/dL (0.55-1.02); Calcium 8.8 mg/dL (8.5-10.1); Chloride 105 mmol/L (98-107); Estimated GFR 89.15 (mL/min/1.73m2); Glucose 158 mg/dL (74-106); Magnesium 1.9 mg/dL (1.8-2.4); Potassium 3.5 mmol/L (3.5-5.1); Sodium 140 mmol/L (136-145); Total Protein 5.8 g/dL (6.4-8.2); Troponin I < 50 ng/L (<or=60)
[2022-06-26 12:34] VITALS: BP 123/79; PULSE 90; RESP 16; O2SAT 96
== END 2022-06-26 12:37 | disposition home or self-care (01) ==
PROVIDERS: Emergency Provider Emergency Medicine Emergency Medical Services; PCP Nurse Practitioner Family
DX: R55 Syncope and collapse (principal); D72.829 Elevated white blood cell count, unspecified
CPT/HCPCS: 36415; 80053; 93005; 96360; 99284; 70450; 71045; 83735; 84484; 85025; 93010

== ENCOUNTER 2022-07-26 02:04 | Outpatient (CLI) | payer BC, SELFPAY ==
--- NOTE | 2022-07-26 | DI.MRI_ITS ---
Exam(s) MR LOWER JOINT LT WO/W EXAM: MR LOWER JOINT LT WO/W CLINICAL HISTORY: LT HIP PAIN,NEW ONSET DM,MILD OA,? AVN TECHNIQUE: Multiplanar multisequence MRI of the knee was performed. Both pre and post contrast infus ed sequences were performed. Contrast injected: Dotarem 13 mL COMPARISON: CR XR PELVIS AND LAT HIP LEFT (GENERIC) from 06/19/2022 FINDINGS: OSSEOUS/ARTICULATIONS: No evidence of fracture nor avascular necrosis. No hip joint effusion. Minimal degenerative changes ACETABULAR LABRUM: No evidence of tear MUSCLES/TENDONS: There is mild increased signal in the body of the gluteus minimus. Minimal increased signal in its tendon. No prominent tendon tear at this level. No trochanteric bursitis. No abnormal intraosseous signal in the greater trochanter nor elsewhere in the hip. Hamstrings unremarkable. BURSAE: No evidence of iliopsoas bursitis nor trochanteric bursitis. CONTRAST: There is no abnormal soft tissue nor intraosseous enhancement. IMPRESSION: 1. Mild findings in the left gluteus minimus. No significant tendon tear nor bursitis evident. 2. No abnormal intraosseous signal. 3. No abnormal enhancement DATA REPOSITORY:
[2022-07-26] MEDS: Gadoterate meglumine 20 ML VIAL IVP (12:52)
[2022-07-26] MEDS: Normal Saline Flush 10 ML SYR IJ (12:53)
--- NOTE | 2022-07-26 18:54 | DI.VRAD_ITS ---
PROCEDURE INFORMATION: Exam: MR Left Lower Extremity Joint Without and With Contrast; Hip Exam date and time: 07/26/2022 1:12 PM Age: 52 years old Clinical indication: Pain; Hip; Left TECHNIQUE: Imaging protocol: Magnetic resonance imaging of the left lower extremity joint without and with contrast. Exam focused on the hip. Contrast material: DOTAREM; Contrast volume: 13 ml; Contrast route: IV; COMPARISON: CR XR PELVIS AND LAT HIP LEFT (GENERIC) 06/19/2022 11:32 AM FINDINGS: Bones/joints: Unremarkable. No bone abnormalities. Articular cartilage is normal. No joint effusion. Labrum: Unremarkable. No tear. TENDONS: Tendons of iliopsoas group: Unremarkable. No evidence of tear. Tendons of medial compartment of thigh: Unremarkable. No evidence of tear. Tendons of lateral rotators of hip: Unremarkable. No evidence of tear. Tendons of gluteal group: There is mild edema in the muscle body of the left gluteus minimus compatible with partial tear. Associated gluteus minimus tendon appears intact. Other gluteal muscles and tendons appear normal. Soft tissues: Otherwise unremarkable IMPRESSION: Findings suggesting partial tear of the left gluteus minimus muscle body Dictated and Authenticated by: Jelani Pink MD. Ordering:YOGI Vela MD
== END 2022-07-26 02:24 ==
LOC: DI 02:04
PROVIDERS: PCP Nurse Practitioner Family; Visit Provider Student in an Organized Health Care Education/Training Program
DX: M25.552 Pain in left hip (principal)
CPT/HCPCS: 73723